=== PATIENT | male | born 1965 ===

== ENCOUNTER 2021-12-23 07:44 | Day surgery (SDC) | payer OTHER ==
[2021-12-23] MEDS ORDERED: CILOXAN5 ML OTIC (14:29)
== END 2021-12-23 18:15 | disposition home or self-care (01) ==
LOC: CIR.AMB 07:44
PROVIDERS: ATTEND Otolaryngology Otology & Neurotology
DX: H80.11 Otosclerosis involving oval window, obliterative, right ear (principal); H90.A11 Conductive hearing loss, unilateral, right ear with restricted hearing on the contralateral side; J45.909 Unspecified asthma, uncomplicated